=== PATIENT | female | born 1975 | race Caucasian/White ===

== ENCOUNTER → 2017-01-26 | Outpatient (CLI) | payer OTHER ==
[2016-01-28 19:30] VITALS: BP 109/73
[~2017-01-26] MED LIST: ASPI81TA50 PO; CELE100C PO; CHOL500050 PO; LEVO5TAB29 PO; LISI1TAB3 PO; OMEG-33 PO; OMEP20TA63 PO; SIMV40TA3 PO
[2017-01-26 14:05] LABS: CALCIUM 9.1 mg/dL (8.5-10.1); CREATININE 0.8 mg/dL (0.6-1.0); GFR 79.4; POTASSIUM 3.4 mmol/L (3.5-5.1)
== END | disposition home or self-care (01) ==
LOC: LAB 13:45
PROVIDERS: ATTEND Internal Medicine Nephrology
DX: E87.5 Hyperkalemia (principal)
CPT/HCPCS: 36415; 80048

== ENCOUNTER → 2017-02-04 | Outpatient (CLI) | payer OTHER ==
[2016-01-28 19:30] VITALS: BP 109/73
[2017-02-04 13:26] LABS: CALCIUM 9.2 mg/dL (8.5-10.1); CREATININE 0.7 mg/dL (0.6-1.0); GFR 92.7; POTASSIUM 3.6 mmol/L (3.5-5.1)
== END | disposition home or self-care (01) ==
LOC: LAB 12:28
PROVIDERS: ATTEND Internal Medicine Nephrology
DX: I10 Essential (primary) hypertension (principal); E87.6 Hypokalemia
CPT/HCPCS: 36415; 80048

== ENCOUNTER → 2017-03-15 | Outpatient (CLI) | payer OTHER ==
[2016-01-28 19:30] VITALS: BP 109/73
[2017-03-15 10:02] LABS: CALCIUM 9.4 mg/dL (8.5-10.1); CREATININE 0.7 mg/dL (0.6-1.0); POTASSIUM 3.8 mmol/L (3.5-5.1)
[2017-03-15 10:05] LABS: GFR 92.7
== END | disposition home or self-care (01) ==
LOC: LAB 09:40
PROVIDERS: ATTEND Internal Medicine Nephrology
DX: I10 Essential (primary) hypertension (principal); E87.6 Hypokalemia
CPT/HCPCS: 36415; 80048

== ENCOUNTER → 2018-05-26 | Outpatient (CLI) | payer OTHER ==
[2016-01-28 19:30] VITALS: BP 109/73
[2018-05-26 07:29] LABS: CREATININE 0.7 mg/dL (0.6-1.0); GFR 92.2; POTASSIUM 4.1 mmol/L (3.5-5.1)
== END | disposition home or self-care (01) ==
LOC: LAB 07:12
PROVIDERS: ATTEND Internal Medicine Cardiovascular Disease
DX: I10 Essential (primary) hypertension (principal)
CPT/HCPCS: 36415; 80048

== ENCOUNTER → 2018-06-03 | Outpatient (CLI) | payer OTHER ==
[2016-01-28 19:30] VITALS: BP 109/73
== END | disposition home or self-care (01) ==
LOC: LAB 18:20
PROVIDERS: ATTEND Family Medicine
DX: R30.0 Dysuria (principal)
CPT/HCPCS: 87086

== ENCOUNTER → 2018-06-30 | Outpatient (CLI) | payer OTHER ==
[2016-01-28 19:30] VITALS: BP 109/73
[2018-06-30 07:47] LABS: CALCIUM 9.5 mg/dL (8.5-10.1); CREATININE 0.8 mg/dL (0.6-1.0); GFR 78.7; POTASSIUM 4.2 mmol/L (3.5-5.1)
== END | disposition home or self-care (01) ==
LOC: LAB 07:13
PROVIDERS: ATTEND Internal Medicine Cardiovascular Disease
DX: I10 Essential (primary) hypertension (principal)
CPT/HCPCS: 36415; 80048

== ENCOUNTER → 2018-08-10 | Outpatient (CLI) | payer OTHER ==
[2016-01-28 19:30] VITALS: BP 109/73
[2018-08-10 10:47] LABS: CALCIUM 9.4 mg/dL (8.5-10.1); CREATININE 0.8 mg/dL (0.6-1.0); GFR 78.7; POTASSIUM 4.1 mmol/L (3.5-5.1)
== END | disposition home or self-care (01) ==
LOC: LAB 10:21
PROVIDERS: ATTEND Internal Medicine Cardiovascular Disease
DX: I10 Essential (primary) hypertension (principal)
CPT/HCPCS: 36415; 80048

== ENCOUNTER → 2018-08-12 | Outpatient (CLI) | payer OTHER ==
[2016-01-28 19:30] VITALS: BP 109/73
[2018-08-12 12:56] LABS: BASO # 0.1 x10^3/uL (0.0-0.2); BASO % 1 % (0-3); EOS # 0.5 x10^3/uL (0.0-0.7); EOS % 6 % (0-3); HEMATOCRIT 38.7 % (36.0-47.0); HEMOGLOBIN 12.9 g/dL (12.0-15.5); LYMPH # 2.4 x10^3/uL (1.0-4.8); LYMPH % 29 % (24-48); MEAN CORPUSCULAR HEMOGLOBIN 28 pg (25-35); MEAN CORPUSCULAR HGB CONC 33 g/dL (31-37); MEAN CORPUSCULAR VOLUME 85 fL (79-100); MONO # 0.5 x10^3/uL (0.0-1.1); MONO % 6 % (0-9); NEUT # 4.9 x10^3uL (1.8-7.7); NEUT % 59 % (31-73); PLATELET COUNT 570 x10^3/uL (140-400); RED BLOOD COUNT 4.54 x10^6/uL (3.50-5.40); RED CELL DISTRIBUTION WIDTH 13.8 % (11.5-14.5); WHITE BLOOD COUNT 8.2 x10^3/uL (4.0-11.0)
[2018-08-12 13:03] LABS: CALCIUM 9.1 mg/dL (8.5-10.1); CREATININE 0.8 mg/dL (0.6-1.0); GFR 78.7
== END | disposition home or self-care (01) ==
LOC: LAB 12:29
DX: N13.5 Crossing vessel and stricture of ureter without hydronephrosis (principal)
CPT/HCPCS: 36415; 80048; 85025

== ENCOUNTER → 2018-11-02 | Outpatient (CLI) | payer OTHER ==
[2016-01-28 19:30] VITALS: BP 109/73
[2018-11-02 23:48] LABS: CALCIUM 9.2 mg/dL (8.5-10.1); CREATININE 0.9 mg/dL (0.6-1.0); GFR 68.7; POTASSIUM 3.9 mmol/L (3.5-5.1)
== END | disposition home or self-care (01) ==
LOC: LAB 23:31
PROVIDERS: ATTEND Internal Medicine Cardiovascular Disease
DX: I10 Essential (primary) hypertension (principal)
CPT/HCPCS: 36415; 80048

== ENCOUNTER → 2019-02-11 | Outpatient (CLI) | payer OTHER ==
[2016-01-28 19:30] VITALS: BP 109/73
[~2019-02-11] MED LIST changes: +LISI1TAB23 PO; -LISI1TAB3 PO
[2019-02-11 11:58] LABS: CALCIUM 8.8 mg/dL (8.5-10.1); CREATININE 0.8 mg/dL (0.6-1.0); GFR 78.7; POTASSIUM 3.7 mmol/L (3.5-5.1)
== END | disposition home or self-care (01) ==
LOC: LAB 11:42
PROVIDERS: ATTEND Internal Medicine Cardiovascular Disease
DX: I10 Essential (primary) hypertension (principal)
CPT/HCPCS: 36415; 80048

== ENCOUNTER 2019-05-14 23:07 | Emergency (ER) | payer OTHER ==
[~2019-05-14] VITALS: Ht 157.5 cm; Wt 72.6 kg
[~2019-05-14 23:07] MED LIST changes: +SIMV40TA18 PO; -SIMV40TA3 PO
--- NOTE | 2019-05-14 23:14 | PHYS DOC ---
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 Past Surgical History: Appendectomy, Cholecystectomy, , Hysterectomy Alcohol Use: Occasionally Drug Use: None Adult General Chief Complaint Chief Complaint: ".. I am having Rt flank pain... I had surgery for obstructiion Ureter.. on Rt 8 months ago.. and I have two more episodes of hematuria.. HPI HPI Patient is a 43 year old female [facility]. who presents with above hx and complaints renal colic symptoms and right flank. 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 Patient has followed at urology for this problem. No history of trauma. No history of food. No history of travel. No history immunosuppression. Review of Systems Review of Systems Constitutional: Denies fever or chills [] Eyes: Denies change in visual acuity, redness, or eye pain [] HENT: Denies nasal congestion or sore throat [] Respiratory: Denies cough or shortness of breath [] Cardiovascular: No additional information not addressed in HPI [] GI: Complaints of right flank abdominal pain, nausea. Denies, vomiting, bloody stools or diarrhea [] : Denies dysuria. History of hematuria [] Musculoskeletal: Denies back pain or joint pain [] Integument: Denies rash or skin lesions [] Neurologic: Denies headache, focal weakness or sensory changes [] Endocrine: Denies polyuria or polydipsia [] All other systems were reviewed and found to be within normal limits, except as documented in this note. Family History Family History Noncontributory to presentation Current Medications Current Medications See nursing for home meds Allergies Allergies Allergies Coded Allergies Type Severity Reaction Last Updated Verified Sulfa (Sulfonamide Antibiotics) Allergy Severe sob 05/15/15 Yes carisoprodol Allergy Severe sob 05/15/15 Yes Physical Exam Physical Exam Constitutional: Moderate acute distress, non-toxic appearance. [] HENT: Normocephalic, atraumatic, bilateral external ears normal, oropharynx moist, no oral exudates, nose normal. [] Eyes: PERRLA, EOMI, conjunctiva normal, no discharge. [] Neck: Normal range of motion, no tenderness, supple, no stridor. [] Cardiovascular:Heart rate regular rhythm, no murmur [] Lungs & Thorax: Bilateral breath sounds clear to auscultation [] Abdomen: Bowel sounds decreased, soft, right flank tenderness, no masses, no pulsatile masses. [] Multiple old surgery scars. Skin: Warm, dry, no erythema, no rash. [] Back: No tenderness, right CVA tenderness. [] Extremities: No tenderness, no cyanosis, no clubbing, ROM intact, no edema. [] No obvious psoas sign. Neurologic: Alert and oriented X 3, normal motor function, normal sensory function, no focal deficits noted. [] Psychologic: Affect anxious, judgement normal, mood normal. [] EKG EKG [] Radiology/Procedures Radiology/Procedures [][address] [id number] IMAGING REPORT Signed PATIENT: CARIN VELEZ MACCOUNT: [id number] : 1975 LOCATION: ER AGE: 43 SEX: F EXAM STATUS: REG ER ORD. PHYSICIAN: TAYLOR LOVE MD REASON: Rt flank pain- hx hydronephorsis PROCEDURE: CT ABDOMEN PELVIS WO CONTRAST CT abdomen and pelvis without and with contrast: Reason for examination: Right flank pain. History of hydronephrosis. Comparison is made to previous study dated 05/15/2015. Helical images were obtained through the abdomen and pelvis pre and post intravenous administration of 75 cc Omnipaque 300. Reconstruction was performed in sagittal and coronal planes. Exposure: One or more of the following individualized dose reduction techniques were utilized for this examination: 1. Automated exposure control 2. Adjustment of the mA and/or kV according to patient size 3. Use of iterative reconstruction technique. The lung bases are clear. The heart size is normal with no pericardial effusion. No abnormality seen at the liver, spleen, adrenal glands or pancreas. The gallbladder surgically absent. The abdominal aorta and inferior vena cava show no acute abnormalities. The colon shows no diverticulosis, diverticulitis or colitis. The appendix appears to be surgically absent. The small intestinal tract shows no abnormal dilatation or wall thickening and no obstruction. There are postop changes in the stomach the kidneys show no renal masses, renal calculi, hydronephrosis or evidence of obstructive uropathy. The bladder wall was not thickened. Vaginal cuff appears prominent considering history of hysterectomy. Left ovary still appears be present. Recommend clinical correlation. No free fluid or free air is seen abdomen or pelvis. IMPRESSION: No significant hydronephrosis or obstructive uropathy. Prominent vaginal cuff given history of hysterectomy. This however is unchanged. No other acute abnormality seen in the abdomen or pelvis. Electronically signed by: Robina Aleman MD (05/15/2019 3:52 AM) [facility] DICTATED AND SIGNED BY: ROBINA ALEMAN MD DATE: 05/15/19 035 CC: TAYLOR LOVE MD; LISS LIU MD ~ Course & Med Decision Making Course & Med Decision Making Pertinent Labs and Imaging studies reviewed. (See chart for details) Patient keep follow-up at urology. May take Vicoprofen up 4 times a day for marked pain. Take Zofran 8 mg up 4 times a day for active vomiting. We will issue follow-up dose of Flomax for possible intermittent renal colic. Follow-up pending urine cultures. Follow-up primary care. Patient issued a copy of CT results to show her urologist on follow-up at . Films also sent by [employer]. Impression: 1. Renal Colic 2. Mild Hypokalemia 3.3 [] Dragon Disclaimer Dragon Disclaimer This electronic medical record was generated, in whole or in part, using a voice recognition dictation system. Departure Departure: Disposition: 01 HOME/RESIDENCE PRIOR TO ADM Condition: STABLE Referrals: LISS LIU MD (PCP) Scripts Tamsulosin Hcl (FLOMAX) 0.4 Mg Cap.er.24h 0.4 MG PO DAILY for renal colic, #30 CAP.SR Prov: TAYLOR LOVE MD 05/15/19 Hydrocodone/Ibuprofen (HYDROCODONE-IBUPROFEN 7.5-200 ) 1 Each Tablet 1 TAB PO PRN Q6HRS PRN for PAIN, #30 TAB 0 Refills Prov: TAYLOR LOVE MD 05/15/19 Ondansetron Hcl (ZOFRAN) 8 Mg Tablet 8 MG PO QIDPRN PRN for for active vomiting, #30 BOTTLE Prov: TAYLOR LOVE MD 05/15/19 Dragon Disclaimer This chart was dictated in whole or in part using Voice Recognition software in a busy, high-work load, and often noisy Emergency Department environment. It may contain unintended and wholly unrecognized errors or omissions. TAYLOR LOVE MD May 14, 2019 23:14
[2019-05-14] MEDS ORDERED: KETOROLAC 30 MG/ML VIAL. ONE (23:29)
[2019-05-14] MEDS ORDERED: ONDANSETRON PF 4 MG/2 ML VIAL. ONE (23:29)
[2019-05-14] MEDS ORDERED: KETOROLAC 30 MG/ML VIAL. IVP ONE (23:30)
[2019-05-14] MEDS ORDERED: IV RINGERS SOLUTION,LACTATED 1,000 ML IV SCH (23:30)
[2019-05-14] MEDS ORDERED: ONDANSETRON PF 4 MG/2 ML VIAL. IVP ONE (23:30)
[2019-05-14] MEDS ORDERED: FAMOTIDINE 20 MG/2 ML VIAL IVP ONE (23:30)
[2019-05-14] MEDS ORDERED: FAMOTIDINE 20 MG/2 ML VIAL ONE (23:30)
[2019-05-15 00:04] LABS: BASO # 0.1 x10^3/uL (0.0-0.2); BASO % 2 % (0-3); EOS # 0.1 x10^3/uL (0.0-0.7); EOS % 2 % (0-3); HEMATOCRIT 39.8 % (36.0-47.0); HEMOGLOBIN 13.4 g/dL (12.0-15.5); LYMPH # 2.8 x10^3/uL (1.0-4.8); LYMPH % 41 % (24-48); MEAN CORPUSCULAR HEMOGLOBIN 28 pg (25-35); MEAN CORPUSCULAR HGB CONC 34 g/dL (31-37); MEAN CORPUSCULAR VOLUME 84 fL (79-100); MONO # 0.4 x10^3/uL (0.0-1.1); MONO % 6 % (0-9); NEUT # 3.3 x10^3uL (1.8-7.7); NEUT % 49 % (31-73); PLATELET COUNT 373 x10^3/uL (140-400); RED BLOOD COUNT 4.72 x10^6/uL (3.50-5.40); WHITE BLOOD COUNT 6.7 x10^3/uL (4.0-11.0)
[2019-05-15 00:16] LABS: BILIRUBIN,URINE NEG (NEG); CLARITY,URINE CLEAR; COLOR,URINE YELLOW; GLUCOSE,URINE NEG (NEG); NITRITE,URINE NEG (NEG); UROBILINOGEN,URINE 0.2 mg/dL (0.2 mg/dL)
[2019-05-15 00:17] LABS: BACTERIA,URINE 0 /HPF (0-FEW); SQUAMOUS EPITHELIAL CELL,UR OCC /LPF
[2019-05-15 00:26] LABS: BARBITURATES NEG (NEG); BENZODIAZEPINES NEG (NEG); CANNABINOIDS NEG (NEG); COCAINE NEG (NEG); METHADONE NEG (NEG); OPIATES NEG (NEG); PHENCYCLIDINE NEG (NEG)
[2019-05-15 00:27] LABS: CALCIUM 8.8 mg/dL (8.5-10.1); CREATININE 0.7 mg/dL (0.6-1.0); GFR 91.8; POTASSIUM 3.3 mmol/L (3.5-5.1)
[2019-05-15 00:31] LABS: ALBUMIN 3.7 g/dL (3.4-5.0); DIRECT BILIRUBIN 0.1 mg/dL (0.0-0.2); TOTAL BILIRUBIN 0.3 mg/dL (0.2-1.0)
[2019-05-15 00:32] LABS: AMPHETAMINE/METHAMPHETAMINE NEG (NEG)
[2019-05-15] MEDS ORDERED: CONTRAST GIVEN MC PRN (01:15)
[2019-05-15] MEDS ORDERED: IOHEXOL 300 MG/ML 75 ML VIAL. IV ONE (01:15)
[2019-05-15 01:16] LABS: U PREG PATIENT NEGATIVE (NEG)
--- NOTE | 2019-05-15 03:55 | RAD ---
CT abdomen and pelvis without and with contrast: Reason for examination: Right flank pain. History of hydronephrosis. Comparison is made to previous study dated 05/15/2015. Helical images were obtained through the abdomen and pelvis pre and post intravenous administration of 75 cc Omnipaque 300. Reconstruction was performed in sagittal and coronal planes. Exposure: One or more of the following individualized dose reduction techniques were utilized for this examination: 1. Automated exposure control 2. Adjustment of the mA and/or kV according to patient size 3. Use of iterative reconstruction technique. The lung bases are clear. The heart size is normal with no pericardial effusion. No abnormality seen at the liver, spleen, adrenal glands or pancreas. The gallbladder surgically absent. The abdominal aorta and inferior vena cava show no acute abnormalities. The colon shows no diverticulosis, diverticulitis or colitis. The appendix appears to be surgically absent. The small intestinal tract shows no abnormal dilatation or wall thickening and no obstruction. There are postop changes in the stomach the kidneys show no renal masses, renal calculi, hydronephrosis or evidence of obstructive uropathy. The bladder wall was not thickened. Vaginal cuff appears prominent considering history of hysterectomy. Left ovary still appears be present. Recommend clinical correlation. No free fluid or free air is seen abdomen or pelvis. IMPRESSION: No significant hydronephrosis or obstructive uropathy. Prominent vaginal cuff given history of hysterectomy. This however is unchanged. No other acute abnormality seen in the abdomen or pelvis. Electronically signed by: Robina Becker MD (05/15/2019 3:52 AM) [facility]
[2019-05-15] MEDS ORDERED: TAMS0.4C97 PO (04:36)
[2019-05-15] MEDS ORDERED: HYDR-1179 PO (04:36)
[2019-05-15] MEDS ORDERED: ONDA8TAB9 PO (04:36)
[2019-05-15 04:40] VITALS: BP 133/65
--- NOTE | 2019-05-15 05:38 | RAD ---
Acute abdominal series: Reason for examination: Flank pain. The heart size is normal. Mediastinum is unremarkable. Lung jorge are clear. No acute bony abnormalities are seen in the thorax. In the abdomen, there is no organomegaly. Psoas muscles are symmetric. The bowel gas pattern is nonspecific with no abnormal dilated loops of bowel or evidence of obstruction. Surgical clips are seen in the right upper quadrant, right lower quadrant and pelvis. There are also multiple calcifications with phleboliths in the pelvis. IMPRESSION: No acute cardiopulmonary disease. Nonspecific bowel gas pattern with large and small intestinal air but no abnormal dilatation or evidence of obstruction. Electronically signed by: Robina Becker MD (05/15/2019 5:36 AM) [facility]
== END 2019-05-15 04:41 | disposition home or self-care (01) ==
LOC: ER 23:07
DX: N23 Unspecified renal colic (principal); E87.6 Hypokalemia; I10 Essential (primary) hypertension; Z86.718 Personal history of other venous thrombosis and embolism; Z88.2 Allergy status to sulfonamides; Z88.8 Allergy status to other drugs, medicaments and biological substances
CPT/HCPCS: 36415; 74022; 74176; 74177; 80048; 80076; 80307; 81001; 81025; 82150; 83690; 85025; 85610; 85730; 96374; 96375; 99285; J1885; J2405; J3490; J7120

== ENCOUNTER → 2019-06-19 | Outpatient (CLI) | payer OTHER ==
[~2019-06-19] MED LIST changes: +HYDR-1179 PO; +ONDA8TAB9 PO; +TAMS0.4C97 PO
[2019-06-19 20:11] LABS: BASO # 0.1 x10^3/uL (0.0-0.2); BASO % 1 % (0-3); EOS # 0.1 x10^3/uL (0.0-0.7); EOS % 2 % (0-3); HEMATOCRIT 44.1 % (36.0-47.0); HEMOGLOBIN 14.2 g/dL (12.0-15.5); LYMPH # 2.9 x10^3/uL (1.0-4.8); LYMPH % 33 % (24-48); MEAN CORPUSCULAR HEMOGLOBIN 28 pg (25-35); MEAN CORPUSCULAR HGB CONC 32 g/dL (31-37); MEAN CORPUSCULAR VOLUME 87 fL (79-100); MONO # 0.5 x10^3/uL (0.0-1.1); MONO % 5 % (0-9); NEUT # 5.1 x10^3uL (1.8-7.7); NEUT % 59 % (31-73); PLATELET COUNT 362 x10^3/uL (140-400); RED BLOOD COUNT 5.08 x10^6/uL (3.50-5.40); RED CELL DISTRIBUTION WIDTH 13.7 % (11.5-14.5); WHITE BLOOD COUNT 8.7 x10^3/uL (4.0-11.0)
[2019-06-19 20:13] LABS: CREATININE 0.8 mg/dL (0.6-1.0); GFR 78.7; POTASSIUM 3.9 mmol/L (3.5-5.1)
== END | disposition home or self-care (01) ==
LOC: LAB 16:41
DX: N13.5 Crossing vessel and stricture of ureter without hydronephrosis (principal)
CPT/HCPCS: 36415; 80048; 85025

== ENCOUNTER 2019-09-17 15:47 | Emergency (ER) | payer OTHER ==
[~2019-09-17] VITALS: Ht 157.5 cm; Wt 79.3 kg
[2019-09-17] MEDS ORDERED: ONDANSETRON PF 4 MG/2 ML VIAL. IV ONE (16:15)
[2019-09-17] MEDS ORDERED: cefTRIAXone SODIUM 1 GM VIAL ONE (16:24)
[2019-09-17] MEDS ORDERED: IV NORMAL SALINE 50ML 50 ML ONE (16:24)
[2019-09-17 16:35] LABS: CREATININE 0.8 mg/dL (0.6-1.0); GFR 78.3; POTASSIUM 3.2 mmol/L (3.5-5.1)
[2019-09-17 16:41] LABS: ALBUMIN 3.6 g/dL (3.4-5.0); ALBUMIN/GLOBULIN RATIO 0.8 (1.0-1.7); TOTAL BILIRUBIN 0.3 mg/dL (0.2-1.0); TOTAL PROTEIN 8.3 g/dL (6.4-8.2)
[2019-09-17 16:57] LABS: CLARITY,URINE CLOUDY; COLOR,URINE YELLOW; GLUCOSE,URINE NEG (NEG)
[2019-09-17 17:00] LABS: BILIRUBIN,URINE NEG (NEG)
[2019-09-17 17:01] LABS: NITRITE,URINE NEG (NEG)
[2019-09-17 17:08] LABS: BACTERIA,URINE MOD /HPF (0-FEW); RBC,URINE 20-40 /HPF (0-2); SQUAMOUS EPITHELIAL CELL,UR MOD /LPF; WBC,URINE 20-40 /HPF (0-4)
--- NOTE | 2019-09-17 17:31 | PHYS DOC ---
Past History Past Medical History: Cancer, DVT, Hypertension, Other Additional Past Medical Histor: innapropriate ST, hydoureter with hydonephrosis Past Surgical History: Appendectomy, Cholecystectomy, , Hysterectomy Additional Past Surgical Histo: nephrostomy tube, ureter neosystostomy, bladder flap Alcohol Use: Occasionally Drug Use: None General Adult EDM: Chief Complaint: NAUSEA/VOMITING/DIARRHEA HPI: HPI: Patient is a 44-year-old female who just recently had ureteral stents removed and since that time she has had a little low abdominal discomfort subjective fever at home along with nausea and vomiting today. She has not been eating and drinking well. She states the pain is not been intolerable. She has been on Keflex for potential urinary tract infection. She denies significant gross hematuria. [] Review of Systems: Review of Systems: Constitutional: Denies fever or chills Eyes: Denies change in visual acuity HENT: Denies nasal congestion or sore throat Respiratory: Denies cough or shortness of breath Cardiovascular: Denies chest pain or edema GI: Denies abdominal pain, nausea, vomiting, bloody stools or diarrhea : D Per HPI Musculoskeletal: Denies back pain or joint pain Integument: Denies rash Neurologic: Denies headache, focal weakness or sensory changes Endocrine: Denies polyuria or polydipsia Lymphatic: Denies swollen glands Psychiatric: Denies depression or anxiety Heart Score: Risk Factors: Risk Factors: DM, Current or recent (<one month) smoker, HTN, HLP, family history of CAD, obesity. Risk Scores: Score 0 - 3: 2.5% MACE over next 6 weeks - Discharge Home Score 4 - 6: 20.3% MACE over next 6 weeks - Admit for Clinical Observation Score 7 - 10: 72.7% MACE over next 6 weeks - Early Invasive Strategies Current Medications: Current Meds: Current Medications Medications (Trade) Dose Ordered Sig/Sameer Start Time Stop Time Status Last Admin Dose Admin Ceftriaxone Sodium 1 gm/ Sodium Chloride 50 ml @ 100 mls/hr 1X ONCE 09/17/19 16:15 09/17/19 16:44 DC 09/17/19 16:30 100 MLS/HR Ceftriaxone Sodium (Rocephin) 1 gm STK-MED ONCE 09/17/19 16:24 09/17/19 16:24 DC Fentanyl Citrate (Fentanyl 2ml Vial) 50 mcg 1X ONCE 09/17/19 16:15 09/17/19 16:16 DC 09/17/19 16:30 50 MCG Ondansetron HCl (Zofran) 4 mg 1X ONCE 09/17/19 16:15 09/17/19 16:16 DC 09/17/19 16:30 4 MG Sodium Chloride 50 ml @ As Directed STK-MED ONCE 09/17/19 16:24 09/17/19 16:24 DC Allergies: Allergies: Allergies Coded Allergies Type Severity Reaction Last Updated Verified Sulfa (Sulfonamide Antibiotics) Allergy Severe sob 05/15/15 Yes carisoprodol Allergy Severe sob 05/15/15 Yes ciprofloxacin Allergy Unknown 09/17/19 Yes Physical Exam: PE: Constitutional: Well developed, well nourished, appears acutely ill but in no significant distress. []. [] Eyes: PERRLA, EOMI, conjunctiva normal, no discharge. [] Neck: Normal range of motion, no tenderness, supple, no stridor. [] Cardiovascular:Heart rate regular rhythm, no murmur [] Lungs & Thorax: Bilateral breath sounds clear to auscultation [] Abdomen: Obese, bowel sounds normal, soft, no tenderness, no masses, no pulsatile masses. [] Skin: Warm, dry, no erythema, no rash. [] Back: No tenderness, no CVA tenderness. [] Extremities: No tenderness, no cyanosis, no clubbing, ROM intact, no edema. [] Neurologic: Alert and oriented X 3, normal motor function, normal sensory function, no focal deficits noted. [] Psychologic: Anxious l. [] Current Patient Data: Labs: Laboratory Tests Test 09/17/19 16:09 09/17/19 16:34 Sodium Level 140 mmol/L (136-145) Potassium Level 3.2 mmol/L (3.5-5.1) L Chloride Level 103 mmol/L (98-107) Carbon Dioxide Level 27 mmol/L (21-32) Anion Gap 10 (6-14) Blood Urea Nitrogen 10 mg/dL (7-20) Creatinine 0.8 mg/dL (0.6-1.0) Estimated GFR (Cockcroft-Gault) 78.3 BUN/Creatinine Ratio 13 (6-20) Glucose Level 89 mg/dL (70-99) Calcium Level 9.0 mg/dL (8.5-10.1) Total Bilirubin 0.3 mg/dL (0.2-1.0) Aspartate Amino Transferase (AST) 14 U/L (15-37) L Alanine Aminotransferase (ALT) 18 U/L (14-59) Alkaline Phosphatase 66 U/L (46-116) Total Protein 8.3 g/dL (6.4-8.2) H Albumin 3.6 g/dL (3.4-5.0) Albumin/Globulin Ratio 0.8 (1.0-1.7) L Lipase 171 U/L (73-393) Urine Collection Type Unknown Urine Color Yellow Urine Clarity Cloudy Urine pH 6.0 Urine Specific [place] 1.025 Urine Protein 100 mg/dl (NEG-TRACE) Urine Glucose (UA) Neg mg/dL (NEG) Urine Ketones (Stick) Trace mg/dL (NEG) Urine Blood Large (NEG) Urine Nitrite Neg (NEG) Urine Bilirubin Neg (NEG) Urine Urobilinogen Dipstick 1.0 mg/dL (0.2 mg/dL) Urine Leukocyte Esterase Mod (NEG) Urine RBC 20-40 /HPF (0-2) Urine WBC 20-40 /HPF (0-4) Urine Squamous Epithelial Cells Mod /LPF Urine Bacteria Mod /HPF (0-FEW) Vital Signs: Vital Signs Date Time Temp Pulse Resp B/P (MAP) Pulse Ox O2 Delivery O2 Flow Rate FiO2 09/17/19 15:48 98.8 86 13 133/89 (104) 99 Room Air EKG: EKG: [] Radiology/Procedures: Radiology/Procedures: [] Course & Med Decision Making: Course & Med Decision Making Pertinent Labs and Imaging studies reviewed. (See chart for details) [ED course: Evaluation reveals a 44-year-old female is having some lower abdominal discomfort and dysuria after removal of ureteral stents. She was given IV fluids some nausea medicine and felt much better. I will change the patient from Keflex to Levaquin and give her some antiemetics to take at home. I encouraged her to drink plenty of fluids.] Dragon Disclaimer: Dragon Disclaimer: This electronic medical record was generated, in whole or in part, using a voice recognition dictation system. Departure Departure: Impression: Primary Impression: Urinary tract infection Qualified Codes: N39.0 - Urinary tract infection, site not specified; R31.9 - Hematuria, unspecified Disposition: HOME/RESIDENCE PRIOR TO ADM Condition: STABLE Referrals: LISS LIU MD (PCP) Patient Instructions: Urinary Tract Infection Additional Instructions: I would stop the Keflex at this time. Start the Levaquin as directed tomorrow morning. Scripts Ondansetron (ONDANSETRON ODT) 4 Mg Tab.rapdis 1 TAB PO PRN Q6-8HRS for NAUSEA, #16 TAB Prov: CARLEY HERZOG DO 09/17/19 Levofloxacin (LEVAQUIN) 500 Mg Tablet 500 MG PO QD for UTI, #7 TAB Prov: CARLEY HERZOG DO 09/17/19 CARLEY HERZOG DO September 17, 2019 17:31
[2019-09-17 17:43] LABS: BASO # 0.1 x10^3/uL (0.0-0.2); BASO % 1 % (0-3); EOS # 0.2 x10^3/uL (0.0-0.7); EOS % 3 % (0-3); HEMATOCRIT 43.6 % (36.0-47.0); HEMOGLOBIN 14.4 g/dL (12.0-15.5); LYMPH % 32 % (24-48); MEAN CORPUSCULAR HEMOGLOBIN 28 pg (25-35); MEAN CORPUSCULAR HGB CONC 33 g/dL (31-37); MEAN CORPUSCULAR VOLUME 84 fL (79-100); MONO # 0.6 x10^3/uL (0.0-1.1); MONO % 6 % (0-9); NEUT # 5.4 x10^3uL (1.8-7.7); NEUT % 58 % (31-73); PLATELET COUNT 340 x10^3/uL (140-400); RED BLOOD COUNT 5.18 x10^6/uL (3.50-5.40); RED CELL DISTRIBUTION WIDTH 13.3 % (11.5-14.5); WHITE BLOOD COUNT 9.2 x10^3/uL (4.0-11.0)
[2019-09-17] MEDS ORDERED: ONDA4TAB12 PO (17:50)
[2019-09-17] MEDS ORDERED: LEVO500T59 PO (17:50)
[2019-09-17 17:54] VITALS: BP 112/78
== END 2019-09-17 18:00 | disposition home or self-care (01) ==
LOC: ER 15:47
DX: N39.0 Urinary tract infection, site not specified (principal); R31.9 Hematuria, unspecified; I10 Essential (primary) hypertension; Z86.718 Personal history of other venous thrombosis and embolism; Z90.89 Acquired absence of other organs; Z90.49 Acquired absence of other specified parts of digestive tract; Z98.890 Other specified postprocedural states; Z90.710 Acquired absence of both cervix and uterus; Z88.2 Allergy status to sulfonamides; Z88.1 Allergy status to other antibiotic agents; Z88.8 Allergy status to other drugs, medicaments and biological substances
CPT/HCPCS: 36415; 80053; 81001; 83690; 85025; 87040; 87086; 96365; 96375; 99285; J0696; J2405; J3010

== ENCOUNTER 2019-09-30 18:27 | Emergency (ER) | payer OTHER ==
[~2019-09-30] VITALS: Ht 157.5 cm; Wt 79.3 kg
[~2019-09-30 18:27] MED LIST changes: +LEVO500T59 PO; +ONDA4TAB12 PO
--- NOTE | 2019-09-30 18:55 | PHYS DOC ---
Past History Past Medical History: Cancer, DVT, Hypertension, Other Additional Past Medical Histor: innapropriate ST, hydoureter with hydonephrosis Past Surgical History: Appendectomy, Cholecystectomy, , Hysterectomy Additional Past Surgical Histo: nephrostomy tube, ureter neosystostomy, bladder flap Alcohol Use: None Drug Use: None General Adult EDM: Chief Complaint: HAND PROBLEM HPI: HPI: " I was carrying a tray of tomato plants down the stairs .. we are redoing the deck...and I missed step.. and fell.." Patient is a 44 year old female who presents with above hx and fall. Injury to Rt side side of face, right shoulder, and right hand. Patient denies any loss of consciousness. But was stunned. Patient is right-hand dominant. Does have swelling of right hand. Localizes pain in Rt. hand and fingers 4 and 5. Patient does have history of bladder cancer which is currently being treated. Patient normally follows with Dr Liu for care. No history of immunosuppression. No history of specific ill contacts. Distal neurovascular is equal to the left hand. Review of Systems: Review of Systems: Constitutional: Denies fever or chills Eyes: Denies change in visual acuity HENT: Complaints of Rt. facial contusion Respiratory: Denies cough or shortness of breath Cardiovascular: Denies chest pain or edema GI: Denies abdominal pain, nausea, vomiting, bloody stools or diarrhea : Denies dysuria Musculoskeletal: Rt. shoulder,and right hand joint pain Integument: Denies rash Neurologic: Denies headache, focal weakness or sensory changes Endocrine: Denies polyuria or polydipsia Lymphatic: Denies swollen glands Psychiatric: Denies depression or anxiety Heart Score: Risk Factors: Risk Factors: DM, Current or recent (<one month) smoker, HTN, HLP, family history of CAD, obesity. Risk Scores: Score 0 - 3: 2.5% MACE over next 6 weeks - Discharge Home Score 4 - 6: 20.3% MACE over next 6 weeks - Admit for Clinical Observation Score 7 - 10: 72.7% MACE over next 6 weeks - Early Invasive Strategies Family History: Family History: Noncontributory Current Medications: Current Meds: See nursing for home meds Allergies: Allergies: Allergies Coded Allergies Type Severity Reaction Last Updated Verified Sulfa (Sulfonamide Antibiotics) Allergy Severe sob 05/15/15 Yes carisoprodol Allergy Severe sob 05/15/15 Yes ciprofloxacin Allergy Unknown 09/17/19 Yes Physical Exam: PE: Constitutional: moderate acute distress, non-toxic appearance. [] HENT: Normocephalic, right facial trauma, bilateral external ears normal, oropharynx moist, no oral exudates, nose normal. [] Eyes: PERRLA, EOMI, conjunctiva normal, no discharge. [] Neck: Normal range of motion, no tenderness, supple, no stridor. [] Cardiovascular:Heart rate regular rhythm, no murmur [] Lungs & Thorax: Bilateral breath sounds equal at apex auscultation [] Abdomen: Bowel sounds normal, soft, no tenderness, no masses, no pulsatile masses. Old scars. Skin: Warm, dry, no erythema, no rash. [] Back: No tenderness, no CVA tenderness. [] Extremities: Right hand and right shoulder tenderness, no cyanosis, no clubbing, ROM intact, right hand and right shoulder edema. [] Neurologic: Alert and oriented X 3, normal motor function, normal sensory function, no focal deficits noted. [] Psychologic: Affect anxious , judgement normal, mood normal. [] Current Patient Data: Vital Signs: Vital Signs Date Time Temp Pulse Resp B/P (MAP) Pulse Ox O2 Delivery O2 Flow Rate FiO2 09/30/19 18:41 98.0 87 18 130/90 (103) 99 Room Air EKG: EKG: [] Radiology/Procedures: Radiology/Procedures: [address] [address] IMAGING REPORT Signed PATIENT: CARIN VELEZCOUNT: [id number] : 1975 LOCATION: ER AGE: 44 SEX: F EXAM STATUS: REG ER ORD. PHYSICIAN: TAYLOR LOVE MD REASON: fall down stairs PROCEDURE: SHOULDER 2+V RIGHT PROCEDURE: HAND RIGHT 3V STUDY DATE: 09/30/2019 CLINICAL INDICATION / HISTORY: Reason: fall down stairs, PAIN MEDIAL HAND FINGERS 4-5 / Spl. Instructions: / History: . TECHNIQUE: PA, lateral and oblique views of the right hand. COMPARISON: None FINDINGS: No fracture or dislocation is identified. The bone density is normal. The joint spaces are maintained, and there are no erosions to suggest an inflammatory arthropathy. The soft tissues are unremarkable. IMPRESSION: No acute osseous abnormality. PROCEDURE: SHOULDER 2+V RIGHT STUDY DATE: 09/30/2019 CLINICAL INDICATION / HISTORY: Reason: fall down stairs, PAIN MEDIAL HAND FINGERS 4-5 / Spl. Instructions: / History: . TECHNIQUE: AP internal and external rotation views with a Y- view were obtained. COMPARISON: None FINDINGS: No fracture, dislocation or bone destruction is identified. There are no degenerative changes at the right AC joint. No calcifications are seen in relation to the rotator cuff insertion. IMPRESSION: No acute osseous abnormality. Electronically signed by: Trina Dutta MD (09/30/2019 8:02 PM) [facility] [place] DICTATED AND SIGNED BY: TRINA DUTTA MD DATE: 09/30/192001 CC: TAYLOR LOVE MD; LISS LIU MD ~ [place] [address] IMAGING REPORT Signed PATIENT: CARIN VELEZCOUNT: [id number] : 1975 LOCATION: ER AGE: 44 SEX: F EXAM STATUS: REG ER ORD. PHYSICIAN: TAYLOR LOVE MD REASON: fall down stairs hit face PROCEDURE: CT HEAD AND CERVICAL SPINE WO CT brain without contrast, CT cervical spine without contrast, CT maxillofacial without contrast HISTORY: Fell downstairs, trauma to face CT brain CT scan the brain was done without contrast. A skull fracture is not identified. There is no intracranial hemorrhage or subdural hematoma. There is no mass or shift of the midline. Ventricles are normal in size. IMPRESSION: 1. No intracranial hemorrhage or acute finding noted. End impression CT maxillofacial CT imaging was obtained to the facial bones without contrast. Orbits are unremarkable. Sinuses are clear. A facial fracture is not identified. There is bowing the nasal septum to the right. The ostiomeatal complex is clear. IMPRESSION: 1. No facial fracture noted. End impression CT cervical spine Axial CT images were obtained to the cervical spine. Sagittal and coronal reconstructed images were reviewed. Thyroid is homogeneous a C-spine fracture is not identified. C-spine is in normal alignment. Disc spaces are normal in height. IMPRESSION: 1. No acute fracture noted in the cervical spine. [address] [address] IMAGING REPORT Signed PATIENT: CARIN VELEZCOUNT: [id number] : 1975 LOCATION: ER AGE: 44 SEX: F EXAM STATUS: REG ER ORD. PHYSICIAN: TAYLOR LOVE MD REASON: fall down stairs, PAIN MEDIAL HAND & FINGERS 4-5 PROCEDURE: HAND RIGHT 3V PROCEDURE: HAND RIGHT 3V STUDY DATE: 09/30/2019 CLINICAL INDICATION / HISTORY: Reason: fall down stairs, PAIN MEDIAL HAND FINGERS 4-5 / Spl. Instructions: / History: . TECHNIQUE: PA, lateral and oblique views of the right hand. COMPARISON: None FINDINGS: No fracture or dislocation is identified. The bone density is normal. The joint spaces are maintained, and there are no erosions to suggest an inflammatory arthropathy. The soft tissues are unremarkable. IMPRESSION: No acute osseous abnormality. PROCEDURE: SHOULDER 2+V RIGHT STUDY DATE: 09/30/2019 CLINICAL INDICATION / HISTORY: Reason: fall down stairs, PAIN MEDIAL HAND FINGERS 4-5 / Spl. Instructions: / History: . TECHNIQUE: AP internal and external rotation views with a Y- view were obtained. COMPARISON: None FINDINGS: No fracture, dislocation or bone destruction is identified. There are no degenerative changes at the right AC joint. No calcifications are seen in relation to the rotator cuff insertion. IMPRESSION: No acute osseous abnormality. Electronically signed by: Trina Dutta MD (09/30/2019 8:02 PM) [facility] [place] DICTATED AND SIGNED BY: TRINA DUTTA MD DATE: 09/30/192001[][address] [address] IMAGING REPORT Signed PATIENT: CARIN VELEZ MACCOUNT: [id number] : 1975 LOCATION: ER AGE: 44 SEX: F EXAM STATUS: REG ER ORD. PHYSICIAN: TAYLOR LOVE MD REASON: fall down stairs PROCEDURE: CHEST PA & LATERAL PA and lateral chest. HISTORY: Fell downstairs PA and lateral views were taken of the chest. There is no pneumothorax or pleural effusion. Heart is normal in size. Mediastinum is not widened. Lungs are free of infiltrates. IMPRESSION: 1. No acute chest disease. Electronically signed by: Jorge Haskins MD (09/30/2019 7:53 PM) [facility] DICTATED AND SIGNED BY: JORGE HASKINS MD DATE: 09/30/191952 CC: TAYLOR LOVE MD; LISS LIU MD ~ Course & Med Decision Making: Course & Med Decision Making Pertinent Labs and Imaging studies reviewed. (See chart for details) Ice packs as needed. Elevation. Rest. Take Tylenol and ibuprofen as needed for pain. May take oxycodone as previous directed. Follow-up primary care. Not put rings on right hand. Return if any concerns. Impression; 1. Fall 2. Contusions 3. Sprains 4. Bladder Cancer Dragon Disclaimer: Dragon Disclaimer: This electronic medical record was generated, in whole or in part, using a voice recognition dictation system. Departure Departure: Disposition: 01 HOME/RESIDENCE PRIOR TO ADM Condition: STABLE Referrals: LISS LIU MD (PCP) Dragon Disclaimer This chart was dictated in whole or in part using Voice Recognition software in a busy, high-work load, and often noisy Emergency Department environment. It may contain unintended and wholly unrecognized errors or omissions. Dragon Disclaimer This chart was dictated in whole or in part using Voice Recognition software in a busy, high-work load, and often noisy Emergency Department environment. It may contain unintended and wholly unrecognized errors or omissions. Dragon Disclaimer This chart was dictated in whole or in part using Voice Recognition software in a busy, high-work load, and often noisy Emergency Department environment. It may contain unintended and wholly unrecognized errors or omissions. TAYLOR LOVE MD September 30, 2019 18:55
[2019-09-30] MEDS ORDERED: ACETAMINOPHEN 500 MG TABLET PO ONE (19:30)
--- NOTE | 2019-09-30 19:56 | RAD ---
PA and lateral chest. HISTORY: Fell downstairs PA and lateral views were taken of the chest. There is no pneumothorax or pleural effusion. Heart is normal in size. Mediastinum is not widened. Lungs are free of infiltrates. IMPRESSION: 1. No acute chest disease. Electronically signed by: Jorge Haskins MD (09/30/2019 7:53 PM) [facility]
--- NOTE | 2019-09-30 20:04 | RAD ---
CT brain without contrast, CT cervical spine without contrast, CT maxillofacial without contrast HISTORY: Fell downstairs, trauma to face CT brain CT scan the brain was done without contrast. A skull fracture is not identified. There is no intracranial hemorrhage or subdural hematoma. There is no mass or shift of the midline. Ventricles are normal in size. IMPRESSION: 1. No intracranial hemorrhage or acute finding noted. End impression CT maxillofacial CT imaging was obtained to the facial bones without contrast. Orbits are unremarkable. Sinuses are clear. A facial fracture is not identified. There is bowing the nasal septum to the right. The ostiomeatal complex is clear. IMPRESSION: 1. No facial fracture noted. End impression CT cervical spine Axial CT images were obtained to the cervical spine. Sagittal and coronal reconstructed images were reviewed. Thyroid is homogeneous a C-spine fracture is not identified. C-spine is in normal alignment. Disc spaces are normal in height. IMPRESSION: 1. No acute fracture noted in the cervical spine. PQRS Compliance Statement: One or more of the following individualized dose reduction techniques were utilized for this examination: 1. Automated exposure control 2. Adjustment of the mA and/or kV according to patient size 3. Use of iterative reconstruction technique Electronically signed by: Jorge Haskins MD (09/30/2019 8:02 PM) [facility]
--- NOTE | 2019-09-30 20:04 | RAD ---
PROCEDURE: HAND RIGHT 3V STUDY DATE: 09/30/2019 CLINICAL INDICATION / HISTORY: Reason: fall down stairs, PAIN MEDIAL HAND FINGERS 4-5 / Spl. Instructions: / History: . TECHNIQUE: PA, lateral and oblique views of the right hand. COMPARISON: None FINDINGS: No fracture or dislocation is identified. The bone density is normal. The joint spaces are maintained, and there are no erosions to suggest an inflammatory arthropathy. The soft tissues are unremarkable. IMPRESSION: No acute osseous abnormality. PROCEDURE: SHOULDER 2+V RIGHT STUDY DATE: 09/30/2019 CLINICAL INDICATION / HISTORY: Reason: fall down stairs, PAIN MEDIAL HAND FINGERS 4-5 / Spl. Instructions: / History: . TECHNIQUE: AP internal and external rotation views with a Y- view were obtained. COMPARISON: None FINDINGS: No fracture, dislocation or bone destruction is identified. There are no degenerative changes at the right AC joint. No calcifications are seen in relation to the rotator cuff insertion. IMPRESSION: No acute osseous abnormality. Electronically signed by: Falguni Dutta MD (09/30/2019 8:02 PM) [facility] [place]
[2019-09-30 20:25] VITALS: BP 144/89
== END 2019-09-30 20:26 | disposition home or self-care (01) ==
LOC: ER 18:27
DX: S43.401A Unspecified sprain of right shoulder joint, initial encounter (principal); S00.83XA Contusion of other part of head, initial encounter; I10 Essential (primary) hypertension; Z85.51 Personal history of malignant neoplasm of bladder; Z86.718 Personal history of other venous thrombosis and embolism; Z88.1 Allergy status to other antibiotic agents; Z88.2 Allergy status to sulfonamides; Z88.8 Allergy status to other drugs, medicaments and biological substances; W10.8XXA Fall (on) (from) other stairs and steps, initial encounter; Y93.89 Activity, other specified; Y92.89 Other specified places as the place of occurrence of the external cause; Y99.8 Other external cause status
CPT/HCPCS: 29125; 70450; 70486; 71046; 72125; 73030; 73130; 99282; 99285-25

== ENCOUNTER → 2020-02-26 | Outpatient (CLI) | payer OTHER ==
[~2020-02-26] MED LIST changes: +PANT40TA3 PO
== END ==
LOC: LAB 07:42
PROVIDERS: ATTEND Nurse Anesthetist, Certified Registered
DX: Z01.812 Encounter for preprocedural laboratory examination (principal); Z86.010 Personal history of colon polyps; Z20.828 Contact with and (suspected) exposure to other viral communicable diseases
CPT/HCPCS: U0003

== ENCOUNTER → 2020-02-29 | Day surgery (SDC) | payer OTHER ==
[~2020-02-29] MED LIST changes: +GLYCOPYRROLATE 1 MG/5 ML VIAL. ONE; +IPRATRPIUM/ALBUTEROL 0.5/2.5MG 3 ML NEBU. NEB PRN; +IV RINGERS SOLUTION,LACTATED 1,000 ML IV SCH; +MIDAZOLAM HCL PF 2 MG/2 ML VIAL. IV ONE; +ONDANSETRON PF 4 MG/2 ML VIAL. IV PRN; +PROPOFOL 10,000 MCG/ML (20ML) VIAL IV ONE
[2020-02-29 10:12] VITALS: BP 125/74
== END | disposition home or self-care (01) ==
LOC: SURG 06:59
PROVIDERS: ATTEND Internal Medicine Gastroenterology
DX: Z12.11 Encounter for screening for malignant neoplasm of colon (principal); D12.2 Benign neoplasm of ascending colon; K63.89 Other specified diseases of intestine; I20.8 Other forms of angina pectoris; E78.00 Pure hypercholesterolemia, unspecified; K21.9 Gastro-esophageal reflux disease without esophagitis; E66.9 Obesity, unspecified; F41.9 Anxiety disorder, unspecified; Z86.010 Personal history of colon polyps; Z80.0 Family history of malignant neoplasm of digestive organs; Z86.718 Personal history of other venous thrombosis and embolism; Z90.49 Acquired absence of other specified parts of digestive tract; Z98.891 History of uterine scar from previous surgery; Z90.710 Acquired absence of both cervix and uterus; Z83.3 Family history of diabetes mellitus; Z88.8 Allergy status to other drugs, medicaments and biological substances; Z88.1 Allergy status to other antibiotic agents; Z88.2 Allergy status to sulfonamides; Z81.8 Family history of other mental and behavioral disorders; Z87.440 Personal history of urinary (tract) infections; Z90.89 Acquired absence of other organs; Z85.51 Personal history of malignant neoplasm of bladder; Z79.899 Other long term (current) drug therapy
CPT/HCPCS: 36415; 45385; 84132; 88305; J2704; J3490; J7120

== ENCOUNTER → 2020-03-25 | Outpatient (CLI) | payer OTHER ==
[2020-02-29 10:12] VITALS: BP 125/74
[~2020-03-25] MED LIST changes: -GLYCOPYRROLATE 1 MG/5 ML VIAL. ONE; -IPRATRPIUM/ALBUTEROL 0.5/2.5MG 3 ML NEBU. NEB PRN; -IV RINGERS SOLUTION,LACTATED 1,000 ML IV SCH; -MIDAZOLAM HCL PF 2 MG/2 ML VIAL. IV ONE; -ONDANSETRON PF 4 MG/2 ML VIAL. IV PRN; -PROPOFOL 10,000 MCG/ML (20ML) VIAL IV ONE
--- NOTE | 2020-03-25 17:14 | RAD ---
3 views bilateral hands HISTORY: Joint pain bilaterally AP lateral and oblique views the hands were obtained bilaterally There is minimal marginal spurring of the distal interphalangeal joints of the fingers. The remaining visualized osseous ribs appear normal. IMPRESSION: Findings suggest mild early osteoarthrosis. No acute findings. Electronically signed by: Jose Desai III, MD (03/25/2020 5:11 PM) [facility]
== END ==
LOC: DXRAD 14:17
PROVIDERS: ATTEND Internal Medicine
DX: M19.042 Primary osteoarthritis, left hand (principal); M19.041 Primary osteoarthritis, right hand
CPT/HCPCS: 73130

== ENCOUNTER → 2020-04-18 | Outpatient (CLI) | payer OTHER ==
[2020-02-29 10:12] VITALS: BP 125/74
--- NOTE | 2020-04-18 17:07 | RAD ---
EXAM: Bilateral knees, 3 views; sacroiliac joints, 3 views; lumbar spine, 3 views; bilateral feet, 3 views. HISTORY: Pain. COMPARISON: None. FINDINGS: Bilateral knees: 3 views of both knees are obtained. There is no fracture, dislocation or subluxation . There is no joint effusion. Bilateral feet: 3 views of both feet are obtained. There is no fracture, dislocation or subluxation. The alignment and joint spaces are unremarkable. There are small left greater than right plantar spur s. There is enthesopathy at the Achilles tendon insertions. Lumbar spine: 3 views lumbar spine are obtained. There is no listhesis. The vertebral bodies are norm al in height and the disc spaces are preserved. There are surgical clips within the abdomen and pelvi s. Sacroiliac joints: 3 views of the sacroiliac joints are obtained. There is no fracture, dislocation o r subluxation. There is no osseous erosion or joint space widening. IMPRESSION: 1. No acute osseous finding. 2. Small left greater than right plantar spurs. Electronically signed by: Maddi Kerns MD (04/18/2020 5:05 PM) [facility]
== END ==
LOC: DXRAD 16:05
PROVIDERS: ATTEND Internal Medicine
DX: M77.32 Calcaneal spur, left foot (principal); M77.31 Calcaneal spur, right foot; H04.123 Dry eye syndrome of bilateral lacrimal glands; K51.80 Other ulcerative colitis without complications; L40.9 Psoriasis, unspecified; M13.0 Polyarthritis, unspecified; M25.50 Pain in unspecified joint; M25.561 Pain in right knee; M25.562 Pain in left knee
CPT/HCPCS: 72100; 72202; 73562; 73630

== ENCOUNTER 2020-06-17 04:53 | Emergency (ER) | payer OTHER ==
[~2020-06-17] VITALS: Ht 157.5 cm; Wt 78.0 kg
--- NOTE | 2020-06-17 05:00 | PHYS DOC ---
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 I ve been hurting all night.. it started when I went to bed..it been constant since 10 pm.. finally I decided to come in... and get checked.. .out.. I get all my cardiology work up and cancer treatment at [facility].. I just did not want to go down to [facility]..and if I called them.. that's what they would want.. " .." I see Dr. Liu locally.. " Patient is a 44 year old female who presents with above hx and complaints of chest pain Pt is in center of chest and seem associated with Dyspnea. Pain is center of her chest. Has been constant since 2200 hrs. Pt. has had multiple works up for cardiology, cath, electrophysiology studies, stress test, tilt table, ultrasound for an inappropriate tachycardia because of bere conductions problems. At one time on meds, but not needed them for some time. Meds were stopped because of bradycardia. Reportedly not a candidate for ablation. May be eventually candidate for pacer. Patient has had history of hypertension, left ventricular hypertrophic changes, and other dysrhythmias. No history of myocardial infarctions. Patient follows with industrial psychology professor Dr. Tapia and Dr. Whyte at [facility]. Patient also follows [facility] for treatment of bladder cancer. Previously felt to be cured however recently has had recurrence of 2 nodular changes in bladder. These were recently biopsied. Patient does have a past history of DVTs left axillary at age 18 due to control. Pt. also has hx of Ulcerative colitis, neuro -cardiogenic syncope, and morbid obesity. Patient has had weight reduction surgery as well as breast reduction. Patient does have a history of multiple other surgeries for appendectomy, cholecystectomy, C-sections and total hysterectomy., Ureterostomy, nephostomy, bladder flap, resection, and ureter resection., and bariatric surgery.. Patient . follows locally with Dr. Liu patient does not smoke. Does occasionally drink alcohol. Has 3 sons. 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 (TAYLOR LOVE MD) Review of Systems: Review of Systems: Constitutional: Denies fever or chills Eyes: Denies change in visual acuity HENT: Denies nasal congestion or sore throat Respiratory: Complaints of shortness of breath Cardiovascular: Complaints of chest pain GI: Denies abdominal pain, nausea, vomiting, bloody stools or diarrhea : Denies dysuria Musculoskeletal: Denies back pain or joint pain Integument: Denies rash Neurologic: Denies headache, focal weakness or sensory changes Endocrine: Denies polyuria or polydipsia Lymphatic: Denies swollen glands Psychiatric: Denies depression or anxiety (TAYLOR LOVE MD) Family History: Family History: Family history 1 brother and 1 sister that are younger they have been healthy. Does not know her father's medical history mother is alive. Has a history of diabetes hypertension and paranoid schizophrenia. (TAYLOR LOVE MD) Current Medications: Current Meds: See nursing for home meds (TAYLOR LOVE MD) Allergies: Allergies: Allergies Coded Allergies Type Severity Reaction Last Updated Verified Sulfa (Sulfonamide Antibiotics) Allergy Severe sob 02/21/20 Yes carisoprodol Allergy Severe sob 02/21/20 Yes ciprofloxacin Allergy Unknown 02/21/20 Yes (TAYLOR LOVE MD) Physical Exam: PE: Constitutional: moderate acute distress, non-toxic appearance. [] HENT: Normocephalic, atraumatic, bilateral external ears normal, oropharynx moist, no oral exudates, nose normal. [] Eyes: PERRLA, EOMI, conjunctiva normal, no discharge. [] Neck: Normal range of motion, no tenderness, supple, no stridor. [] Cardiovascular:Heart rate regular rhythm, no murmur [] Lungs & Thorax: Bilateral breath sounds equal apex on auscultation [] breast reast scars. Abdomen: Bowel sounds decreased, soft, no tenderness, no masses, no pulsatile masses. Surgery scars Skin: Warm, dry, no erythema, no rash. [] Back: No tenderness, no CVA tenderness. Surgery scar Extremities: No tenderness, no cyanosis, no clubbing, ROM intact, patient ankle edema. [No cording appreciated.] Neurologic: Alert and oriented X 3, moves all extremities on request, does have distal sensory, no focal deficits noted. [] Psychologic: Affect anxious, judgement normal, mood normal. [] (TAYLOR LOVE MD) EKG: EKG: EKG pending at shift change .[] (TAYLOR LOVE MD) Radiology/Procedures: Radiology/Procedures: Radiographs pending at shift change [] (TAYLOR LOVE MD) Heart Score: Risk Factors: Risk Factors: DM, Current or recent (<one month) smoker, HTN, HLP, family history of CAD, obesity. Risk Scores: Score 0 - 3: 2.5% MACE over next 6 weeks - Discharge Home Score 4 - 6: 20.3% MACE over next 6 weeks - Admit for Clinical Observation Score 7 - 10: 72.7% MACE over next 6 weeks - Early Invasive Strategies (TAYLOR LOVE MD) Course & Med Decision Making: Course & Med Decision Making Pertinent Labs and Imaging studies reviewed. (See chart for details) Pt endorsed to Dr. Simpson at shift change. She will make disposition of pt. Impression: 1. Chest pain [] (TAYLOR LOVE MD) Course & Med Decision Making Patient reevaluated, calm and in no active distress. Complains of chest pain and shortness of breath. Patient is saturating above 95% on room air requiring no supplemental oxygen. Reports she has a history of Covid. D-dimer is within normal limits. EKG with no ischemia -with pacs. Two troponins negative. Pt educated that CT chest is more sensitive for infiltrate/PE, that she has been screened for a PE and is low risk. Has no LE edema/swelling. Pt declined CTA chest to exclude PE. Refuses any covid/flu testing. Offered medrol dose pack/albuterol, pt declined and agrees with followup with pmd and cardiology. DUE TO PROLONGED EMR DOWNTIME/HOSPITAL POLICY, PTS' FULL CHART (INCLUDING, HISTORY, ROS, PHYSICAL EXAM, IMPRESSION, IMAGING/LABS/ORDERS, DISPOSITION AND DISCHARGE PAPERS) -WAS DOCUMENTED VIA PAPER CHARTING. - PLEASE REFER TO PAPER DOCUMENTS FOR FULL INFORMATION REGARDING PTS' ED VISIT. (LUZ SIMPSON DO) Dragon Disclaimer: Dragon Disclaimer: This electronic medical record was generated, in whole or in part, using a voice recognition dictation system. (TAYLOR LOVE MD) Departure Departure: Impression: Primary Impression: Atypical chest pain Disposition: 01 DC HOME SELF CARE/HOMELESS Condition: STABLE Referrals: LISS LIU MD (PCP) Dragon Disclaimer This chart was dictated in whole or in part using Voice Recognition software in a busy, high-work load, and often noisy Emergency Department environment. It may contain unintended and wholly unrecognized errors or omissions. (TAYLOR LOVE MD) Dragon Disclaimer This chart was dictated in whole or in part using Voice Recognition software in a busy, high-work load, and often noisy Emergency Department environment. It may contain unintended and wholly unrecognized errors or omissions. (TAYLOR LOVE MD) Dragon Disclaimer This chart was dictated in whole or in part using Voice Recognition software in a busy, high-work load, and often noisy Emergency Department environment. It may contain unintended and wholly unrecognized errors or omissions. (TAYLOR LOVE MD) TAYLOR LOVE MD Jun 17, 2020 05:00 LUZ SIMPSON DO Jun 17, 2020 13:56
--- NOTE | 2020-06-17 05:14 | EKG ---
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
[2020-06-17] MEDS ORDERED: IV RINGERS SOLUTION,LACTATED 1,000 ML IV SCH (05:30)
[2020-06-17] MEDS ORDERED: ASPIRIN CHEWABLE 81 MG TABLET. PO ONE (05:30)
[2020-06-17 05:54] LABS: BASO % 1 % (0-3); EOS # 0.3 x10^3/uL (0.0-0.7); EOS % 4 % (0-3); HEMATOCRIT 40.7 % (36.0-47.0); HEMOGLOBIN 12.9 g/dL (12.0-15.5); LYMPH # 2.9 x10^3/uL (1.0-4.8); LYMPH % 39 % (24-48); MEAN CORPUSCULAR HEMOGLOBIN 26 pg (25-35); MEAN CORPUSCULAR HGB CONC 32 g/dL (31-37); MEAN CORPUSCULAR VOLUME 83 fL (79-100); MONO # 0.5 x10^3/uL (0.0-1.1); MONO % 7 % (0-9); NEUT # 3.8 x10^3uL (1.8-7.7); NEUT % 50 % (31-73); PLATELET COUNT 372 x10^3/uL (140-400); RED BLOOD COUNT 4.93 x10^6/uL (3.50-5.40); RED CELL DISTRIBUTION WIDTH 13.3 % (11.5-14.5); WHITE BLOOD COUNT 7.5 x10^3/uL (4.0-11.0)
[2020-06-17 06:17] LABS: BARBITURATES NEG (NEG); BENZODIAZEPINES NEG (NEG); CANNABINOIDS NEG (NEG); COCAINE NEG (NEG); METHADONE NEG (NEG); OPIATES NEG (NEG); PHENCYCLIDINE NEG (NEG)
[2020-06-17 06:18] LABS: AMPHETAMINE/METHAMPHETAMINE NEG (NEG)
[2020-06-17 06:20] LABS: BACTERIA,URINE 0 /HPF (0-FEW); BILIRUBIN,URINE NEG (NEG); CLARITY,URINE CLEAR; COLOR,URINE YELLOW; GLUCOSE,URINE NEG (NEG); NITRITE,URINE NEG (NEG); RBC,URINE RARE /HPF (0-2); SQUAMOUS EPITHELIAL CELL,UR OCC /LPF; UROBILINOGEN,URINE 0.2 mg/dL (0.2 mg/dL)
[2020-06-17 06:20] LABS: CALCIUM 8.8 mg/dL (8.5-10.1); CREATININE 0.9 mg/dL (0.6-1.0); GFR 68.3; POTASSIUM 3.6 mmol/L (3.5-5.1)
[2020-06-17 06:27] LABS: ALBUMIN 3.5 g/dL (3.4-5.0); DIRECT BILIRUBIN 0.1 mg/dL (0.0-0.2); MAGNESIUM 1.8 mg/dL (1.8-2.4); TOTAL BILIRUBIN 0.2 mg/dL (0.2-1.0); TOTAL PROTEIN 7.6 g/dL (6.4-8.2)
--- NOTE | 2020-06-17 07:40 | RAD ---
XR CHEST 1V INDICATION: CHEST PAIN. . COMPARISON STUDY: 09/30/2019. FINDINGS: Lungs: Normal lung volume. No pulmonary mass or consolidation. The tracheobronchial tree and hilar st ructures are normal. Pleura: No pleural effusion or pneumothorax. Heart and Mediastinum: The cardiomediastinal silhouette is normal. The great vessels of the thorax ar e normal. Bones and Soft Tissues: The bones and soft tissues are within normal limits. IMPRESSION: No acute cardiopulmonary process. Electronically signed by: Chema Pierce MD (06/17/2020 7:38 AM) [id number]
[2020-06-17] MEDS ORDERED: KETOROLAC 15 MG/ML VIAL. ONE (10:03)
[2020-06-17 10:05] VITALS: BP 146/99
[2020-06-17 14:28] LABS: THYROID STIM HORMONE (TSH) 6.114 uIU/mL (0.358-3.740)
[2020-06-17] MEDS ORDERED: KETOROLAC 15 MG/ML VIAL. IVP ONE (16:45)
== END 2020-06-17 10:00 | disposition home or self-care (01) ==
LOC: ER 04:53
DX: R07.89 Other chest pain (principal); R06.00 Dyspnea, unspecified; R55 Syncope and collapse; I10 Essential (primary) hypertension; Z86.718 Personal history of other venous thrombosis and embolism; Z87.440 Personal history of urinary (tract) infections; Z90.49 Acquired absence of other specified parts of digestive tract; Z90.89 Acquired absence of other organs; Z98.890 Other specified postprocedural states; Z90.710 Acquired absence of both cervix and uterus; Z88.1 Allergy status to other antibiotic agents; Z88.2 Allergy status to sulfonamides; Z88.8 Allergy status to other drugs, medicaments and biological substances
CPT/HCPCS: 36415; 71045; 80048; 80061; 80076; 80307; 81001; 82550; 83690; 83735; 84443; 84484; 84702; 85025; 85379; 85610; 85730; 93005; 96361; 96374; 99285; J1885; J7120